=== PATIENT | female | born 1990 | race Caucasian/White ===

== ENCOUNTER 2024-04-04 14:10 | Emergency (ER) | payer SELFPAY ==
[~2024-04-04] VITALS: Ht 172.7 cm; Wt 57.6 kg
[2024-04-04 14:13] VITALS: BP 131/76; PULSE 61; RESP 16; TEMP 98.2; O2SAT 100
[2024-04-04] MEDS ORDERED: MECL-302 PO (16:32)
== END 2024-04-04 16:47 | disposition home or self-care (01) ==
LOC: ER 14:12
DX: S06.0X0A Concussion without loss of consciousness, initial encounter (principal); Z88.5 Allergy status to narcotic agent; W20.8XXA Other cause of strike by thrown, projected or falling object, initial encounter; Y93.89 Activity, other specified; Y92.89 Other specified places as the place of occurrence of the external cause; Y99.8 Other external cause status
CPT/HCPCS: 99282; 99283